=== PATIENT | female | born 1950 | race Caucasian/White ===

== ENCOUNTER 2019-06-02 12:45 | Emergency (ER) | payer OTHER, BC ==
[~2019-06-02] VITALS: Ht 152.4 cm; Wt 70.3 kg
[2019-06-02 13:27] VITALS: BP_SYST 150
--- NOTE | 2019-06-02 13:27 | NUR ---
Patient triaged and placed in waiting room. VSS and patient appears in no acute distress at this time. Accompanied by self, awaiting available bed, and MD notified of need for MSE.
--- NOTE | 2019-06-02 15:05 | NUR ---
Patient left without being seen.
[2019-06-02] MEDS ORDERED: NACL 0.9% 1,000 ML IV ONE (15:39)
== END 2019-06-02 15:05 | disposition left against medical advice (07) ==
LOC: SED 12:45
DX: R10.9 Unspecified abdominal pain (principal); Z53.21 Procedure and treatment not carried out due to patient leaving prior to being seen by health care provider